=== PATIENT | male | born 1965 | race American Indian/Alaskan Native ===

== ENCOUNTER 2017-08-11 09:14 | Emergency (ER) | payer BC ==
[2017-08-11 09:22] VITALS: RESP 18; TEMP 98.1; BMI 39.3
--- NOTE | 2017-08-11 09:48 | ED PDOC ---
Arrival/HPI - General Chief Complaint: Trauma Time Seen by Provider: 08/11/17 09:30 Historian: Patient - History of Present Illness Narrative History of Present Illness (Text): 08/11/17 09:48 A 52 year old male, whose past medical history includes hypertension, presents to the emergency department complaining of right elbow arm pain s/p trip and fall prior to arrival. Patient reports [place], tripped and fell, braced his fall with outstretched arm and landing on his right side. Denies any head injuries or neck pain. Patient was able to get up and ambulate without difficulty. Denies any loss of consciousness. Denies any numbness or tingling. Reports movement of right arm causes more discomfort. Patient describes pain as 5/10. Patient denies any other medical complaints at this time. Patient is right hand dominant. pt denied chest pain/sob/abd pain, no n/v pt is here for further eval PMD: Dr. Enrique Friedman Time/Duration: Prior to Arrival Symptom Onset: Sudden Symptom Course: Unchanged Quality: Throbbing Severity Level: 5, Moderate Activities at Onset: Light Context: Street [place] Past Medical History - Provider Review Nursing Documentation Reviewed: Yes - Travel History Have you recently traveled outside [place] w/in the past 3 mons?: No - Past History Past History: No Previous - Infectious Disease Hx of Infectious Diseases: None - Tetanus Immunization Tetanus Immunization: Unknown - Cardiac Hx Cardiac Disorders: Yes Hx Hypertension: Yes - Psychiatric Hx Substance Use: No Family/Social History - Physician Review Nursing Documentation Reviewed: Yes Family/Social History: No Known Family HX Smoking Status: Never Smoked Hx Alcohol Use: Yes Frequency of alcohol use: Socially Hx Substance Use: No Hx Substance Use Treatment: No Allergies/Home Meds Allergies/Adverse Reactions: Allergies No Known Allergies Allergy (Verified 08/11/17 09:17) Review of Systems - Physician Review All systems were reviewed & negative as marked: Yes - Review of Systems Constitutional: absent: Fevers Eyes: Normal ENT: Normal Respiratory: Normal Cardiovascular: Normal Gastrointestinal: Normal Genitourinary Male: Normal Musculoskeletal: Other (right elbow arm pain; no numbess; no tingling). absent : Neck Pain Skin: Normal Neurological: Normal Endocrine: Normal Hemo/Lymphatic: Normal Psychiatric: Normal Physical Exam Vital Signs Reviewed: Yes Vital Signs Temp Pulse Resp BP Pulse Ox 08/11/17 10:53 78 18 146/78 98 08/11/17 09:18 98.1 F 89 18 158/97 H 96 Temperature: Afebrile Blood Pressure: Hypertensive Pulse: Regular Respiratory Rate: Normal Appearance: Positive for: Well-Appearing, Non-Toxic, Uncomfortable, Other ( sitting on exam bed, alert/awake, GCS = 15, oriented x 3, NAD, mildly uncomfortable, cooperative) Pain Distress: None Mental Status: Positive for: Alert and Oriented X 3 - Systems Exam Head: Present: Atraumatic, Normocephalic Pupils: Present: PERRL, Other (no nystagmus, no photophobia, sclera anicteric, visual field intact b/l) Extroacular Muscles: Present: EOMI Conjunctiva: Present: Normal Ears: Present: Normal Mouth: Present: Moist Mucous Membranes, Normal Teeth Pharnyx: Present: Normal Nose (External): Present: Atraumatic Nose (Internal): Present: Normal Inspection Neck: Present: Normal Range of Motion, Trachea Midline, Other (intact ROM, no step off, no midline tenderness, no meningeal signs). No: Meningeal Signs, MIDLINE TENDERNESS, Paraspinal Tenderness Respiratory/Chest: Present: Clear to Auscultation, Good Air Exchange, Other ( CTA b/l, no w/r/r). No: Respiratory Distress, Accessory Muscle Use Cardiovascular: Present: Regular Rate and Rhythm, Normal S1, S2. No: Murmurs Abdomen: Present: Normal Bowel Sounds, Other (well nourished male, no focal tenderness, no masses/rebound/guarding/rigidity, no dalal's sign, no mcburney' s point tenderness). No: Tenderness, Distention, Peritoneal Signs Back: Present: Normal Inspection. No: CVA Tenderness, Midline Tenderness, Paraspinal Tenderness Upper Extremity: Present: Normal Inspection, Normal ROM, NORMAL PULSES, Neurovascularly Intact, Capillary Refill < 2s, Other (+ point tendern over the right ulnar/olecranon, NO crepitus, intact ROM, strength 5/5 grossly intact in all limbs, neurovasc intact b/l, no gross deformities). No: Cyanosis, Edema, Deformity Lower Extremity: Present: Normal Inspection, NORMAL PULSES, Normal ROM, Neurovascularly Intact, Capillary Refill < 2 s. No: Edema, David's Sign, Deformity Neurological: Present: GCS=15, CN II-XII Intact, Speech Normal Skin: Present: Warm, Dry, Normal Color, Other (cap refill < 1sec, no ulcerations , no petechiae, no rashes/lesions noted). No: Rashes Psychiatric: Present: Alert, Oriented x 3, Normal Insight, Normal Concentration Medical Decision Making ED Course and Treatment: 08/11/17 09:46 Impression: A 52 year old male with right arm elbow pain. I have considered all differential diagnoses regarding patients chief medical complaints/clinical findings which include but are not limited to: right elbow arm pain, r/o fracture; unlikely dislocation; most likely contusion vs. sprain vs. strain Plan: -- Radiology right elbow -- Reassess and disposition Progress Notes: 08/11/17 10:24 pt is doing well pt is not in any distress pt is made aware of his medical results pt is encouraged RICE txt pt is encouraged no heavy weight bearing pt will f/u as directed pt will be discharged home Re-evaluation Time: 10:45 Reassessment Condition: Improved - RAD Interpretation Narrative RAD Interpretations (Text): 08/11/17 10:30 Radiology right elbow- Dictated By: Manish Summers MD Impression: Unremarkable radiographs of the right elbow. Radiology Orders: 08/11/17 09:40 ELBOW RIGHT 3 VIEWS ROUTINE [RAD] Stat Photographer Apprentice: Radiologist - Scribe Statement The provider has reviewed the documentation as recorded by the David Snyder Provider Scribe Attestation: All medical record entries made by the Scribe were at my direction and personally dictated by me. I have reviewed the chart and agree that the record accurately reflects my personal performance of the history, physical exam, medical decision making, and the department course for this patient. I have also personally directed, reviewed, and agree with the discharge instructions and disposition. Disposition/Present on Arrival - Present on Arrival Any Indicators Present on Arrival: No History of DVT/PE: No History of Uncontrolled Diabetes: No Urinary Catheter: No History of Decub. Ulcer: No History Surgical Site Infection Following: None - Disposition Have Diagnosis and Disposition been Completed?: Yes Diagnosis: Elbow strain, Elbow contusion, Fall Disposition: HOME/ ROUTINE Disposition Time: 10:59 Patient Plan: Discharge Condition: STABLE Discharge Instructions (ExitCare): Muscle Strain, Contusion (DC) Print Language: CAMEROONIAN Additional Instructions: Make sure to see your doctor in 1-2 days DRINK PLENTY OF FLUIDS take your medications as prescribed avoid heavy lifting RETURN TO ED IF worse pain, cant breath, persistent vomiting, high fever >101- 102 for hours, altered behavior, slurr speech, facial changes, focal weakness ( arm/leg or both), unable to urinate, heavy/persistent bleeding, passing out, chest pain, or other medical emergencies Prescriptions: Ibuprofen [Motrin] 600 mg PO QID PRN #20 tab PRN Reason: Pain, Mild (1-3) Referrals: Manish Escamilla, DO [Staff Provider] - Follow up with primary Forms: [facility] ([employer]), WORK NOTE
--- NOTE | 2017-08-11 10:31 | RAD ---
PROCEDURE: Radiographs of the right elbow. HISTORY: trip and fall, right elbow pain COMPARISON: No prior. FINDINGS: BONES: Normal. No fracture. JOINTS: Normal. No osteoarthritis. SOFT TISSUES: Normal. JOINT EFFUSION: None. OTHER FINDINGS: None. IMPRESSION: Unremarkable radiographs of the right elbow.
[2017-08-11 10:53] VITALS: BP 146/78; PULSE 78; O2SAT 98
== END 2017-08-11 11:14 | disposition home or self-care (01) ==
LOC: ED 09:14
DX: S50.01XA Contusion of right elbow, initial encounter (principal); S56.911A Strain of unspecified muscles, fascia and tendons at forearm level, right arm, initial encounter; W01.0XXA Fall on same level from slipping, tripping and stumbling without subsequent striking against object, initial encounter; I10 Essential (primary) hypertension